=== PATIENT | male | born 1975 | race Asian ===

== ENCOUNTER 2021-08-26 10:02 | Inpatient (IN) | payer OTHER ==
[~2021-08-26] VITALS: Ht 167.6 cm; Wt 67.0 kg
[2021-08-26 10:59] LABS: BASOPHILS % (AUTO) 0.2 % (0.0-2.0); EOSINOPHILS % (AUTO) 5.4 % (1.0-6.0); HEMATOCRIT 46.8 % (41-53); HEMOGLOBIN 15.9 g/dL (13.5-17.5); LYMPHOCYTES # (AUTO) 2.1 K/uL (1.0-4.8); LYMPHOCYTES % (AUTO) 25.6 % (22.0-44.0); MEAN CORPUSCULAR HEMOGLOBIN 30.6 pg (26.0-34.0); MEAN CORPUSCULAR HGB CONC 33.9 G/dL (31.0-37.0); MEAN CORPUSCULAR VOLUME 90 fL (80-100); MONOCYTES # (AUTO) 0.7 K/uL (0.1-1.0); MONOCYTES % (AUTO) 8.5 % (2.0-9.0); NEUTROPHILS # (AUTO) 4.9 K/uL (1.8-7.7); NEUTROPHILS % (AUTO) 60.3 % (40.0-70.0); PLATELET COUNT (AUTO) 259 K/uL (150-450); RED BLOOD CELL COUNT(AUTO) 5.18 MIL/uL (4.50-5.90); RED CELL DISTRIBUTION WIDTH 13.5 % (11.5-14.5)
[2021-08-26 11:18] LABS: ANION GAP 5 mmol/L (8-16); CALCIUM, TOTAL 9.3 mg/dL (8.8-10.5); CARBON DIOXIDE 31 mmol/L (22-29); CHLORIDE 105 mmol/L (98-107); CREATININE 0.86 mg/dL (0.60-1.30); GLOMERULAR FILTR. RATE CALC > 60 mL/min (>60); GLUCOSE,RANDOM 92 mg/dL (70-110); POTASSIUM 4.7 mmol/L (3.5-5.1); SODIUM SERUM 141 mmol/L (136-145); UREA NITROGEN, BLOOD 20 mg/dL (7-18)
[2021-08-26 11:24] LABS: ALKALINE PHOSPHATASE 60 U/L (46-116); ASPARTATE AMINOTRANSFERASE 15 U/L (15-37); BILIRUBIN,TOTAL 0.2 mg/dL (0.1-1.0); TOTAL PROTEIN, SERUM 7.6 g/dL (6.4-8.2)
[2021-08-26 11:33] LABS: ALANINE AMINOTRANSFERASE 24 U/L (12-78)
[2021-08-26] MEDS ORDERED: NITROGLYCERIN 2% (1 GM=INCH) PACKET TP ONE (13:45)
[2021-08-26] MEDS ORDERED: ASPIRIN 325 MG TABLET PO ONE (13:45)
[2021-08-26] MEDS ORDERED: NITROGLYCERIN 0.4 MG SUBLINGUAL TABLET #25 SL PRN (15:00)
[2021-08-26 16:12] LABS: COVID AG,FIA SOURCE NASOPHARYNGEAL
[2021-08-26] MEDS ORDERED: SODIUM CHLORIDE 0.9% 100 ML ONE (17:37)
[2021-08-26] MEDS ORDERED: IOHEXOL 350 MG/ML 100 ML VIAL ONE (17:37)
[2021-08-26] MEDS ORDERED: ZOLPIDEM TARTRATE 5 MG TABLET PO PRN (20:30)
[2021-08-26] MEDS ORDERED: ONDANSETRON HCL 4 MG/2 ML VIAL IVP PRN (20:30)
[2021-08-26] MEDS ORDERED: ACETAMINOPHEN 325 MG TABLET PO PRN (20:30)
[2021-08-26] MEDS ORDERED: ALBUTEROL SULFATE 2.5 MG/0.5 ML NEB SOLUTION NEB PRN (20:30)
[2021-08-26] MEDS ORDERED: MAGNESIUM HYDROXIDE SUSPENSION 30 ML UDCUP PO PRN (20:30)
[2021-08-26] MEDS ORDERED: HYDROCODONE/ACETAMINOPHEN 5-325 MG TABLET PO PRN (20:30)
[2021-08-26] MEDS ORDERED: BISACODYL 10 MG RECTAL RECTAL SUPPOSITORY PR PRN (20:30)
[2021-08-26] MEDS ORDERED: IPRATROPIUM BROMIDE 0.5 MG/2.5 ML NEB SOLUTION NEB PRN (20:30)
[2021-08-26] MEDS ORDERED: MORPHINE SULFATE 2 MG/ML SYRINGE IVP PRN (20:30)
[2021-08-26] MEDS: HEPARIN SODIUM,PORCINE 5,000 UNITS/ML VIAL SQ SCH (23:59)
[2021-08-27 06:59] LABS: BASOPHILS % (AUTO) 1.2 % (0.0-2.0); EOSINOPHILS % (AUTO) 6.4 % (1.0-6.0); HEMATOCRIT 46.2 % (41-53); HEMOGLOBIN 15.7 g/dL (13.5-17.5); LYMPHOCYTES # (AUTO) 2.4 K/uL (1.0-4.8); LYMPHOCYTES % (AUTO) 30.1 % (22.0-44.0); MEAN CORPUSCULAR HEMOGLOBIN 30.7 pg (26.0-34.0); MEAN CORPUSCULAR VOLUME 90 fL (80-100); MONOCYTES # (AUTO) 0.7 K/uL (0.1-1.0); MONOCYTES % (AUTO) 8.7 % (2.0-9.0); NEUTROPHILS # (AUTO) 4.2 K/uL (1.8-7.7); NEUTROPHILS % (AUTO) 53.6 % (40.0-70.0); PLATELET COUNT (AUTO) 249 K/uL (150-450); RED BLOOD CELL COUNT(AUTO) 5.12 MIL/uL (4.50-5.90); RED CELL DISTRIBUTION WIDTH 13.3 % (11.5-14.5)
[2021-08-27 07:24] LABS: B-TYPE NATRIURETIC PEPTIDE 11 pg/mL (0-100); HEMOGLOBIN A1C 5.8 % (3.8-5.6)
[2021-08-27 07:35] LABS: ANION GAP 7 mmol/L (8-16); CALCIUM, TOTAL 8.8 mg/dL (8.8-10.5); CARBON DIOXIDE 28 mmol/L (22-29); CHLORIDE 107 mmol/L (98-107); CHOL/HDL RATIO 5.4 (4.2-7.3); CHOLESTEROL 214 mg/dL (131-200); CREATININE 0.97 mg/dL (0.60-1.30); GLOMERULAR FILTR. RATE CALC > 60 mL/min (>60); GLUCOSE,RANDOM 96 mg/dL (70-110); HDL CHOLESTEROL 40 mg/dL (40-60); LDL CHOL (CALC.) 146 mg/dL (0-130); POTASSIUM 4.3 mmol/L (3.5-5.1); SODIUM SERUM 142 mmol/L (136-145); TRIGLYCERIDES 139 mg/dL (15-150); UREA NITROGEN, BLOOD 24 mg/dL (7-18)
[2021-08-27] MEDS: PANTOPRAZOLE SODIUM 40 MG/VIAL IVP SCH (09:20)
[2021-08-27] MEDS: HEPARIN SODIUM,PORCINE 5,000 UNITS/ML VIAL SQ SCH ×3 (09:20→23:54)
[2021-08-27] MEDS: ASPIRIN 81 MG DR TABLET PO SCH (09:20)
[2021-08-27] MEDS ORDERED: SESTAMIBI TC99M/UD ISOTOPE 1 EA INJ INJ ONE (10:05)
[2021-08-27 22:40] VITALS: BP 147/88
[2021-08-28 05:13] VITALS: BP 147/95
[2021-08-28 07:35] VITALS: BP 144/94
[2021-08-28] MEDS: HEPARIN SODIUM,PORCINE 5,000 UNITS/ML VIAL SQ SCH ×2 (08:00→15:44)
[2021-08-28] MEDS: PANTOPRAZOLE SODIUM 40 MG/VIAL IVP SCH (08:05)
[2021-08-28] MEDS ORDERED: REGADENOSON 0.4 MG/5 ML PF SYRINGE IVP ONE ×2 (08:30→23:19)
[2021-08-28] MEDS ORDERED: ATORVASTATIN CALCIUM 20 MG TABLET PO SCH (09:00)
[2021-08-28] MEDS ORDERED: SESTAMIBI TC99M/UD ISOTOPE 1 EA INJ INJ ONE (10:20)
[2021-08-28 10:57] VITALS: BP 144/88
[2021-08-28 11:39] VITALS: BP 142/88
[2021-08-28] MEDS: ASPIRIN 81 MG DR TABLET PO SCH (12:57)
[2021-08-28 16:08] VITALS: BP 119/82
[2021-08-28 19:35] VITALS: BP 126/73
[2021-08-28] MEDS ORDERED: ATOR20TA65 PO (23:56)
[2021-08-28] MEDS ORDERED: ASPI-1444 PO (23:56)
== END 2021-08-28 23:20 | disposition home or self-care (01) | DRG 203 ==
LOC: EMS 10:12 → 5S 08-27 19:00
PROVIDERS: ADMIT Hospitalist; ATTEND Hospitalist
DX: R07.89 Other chest pain (principal); E78.5 Hyperlipidemia, unspecified; Z20.822 Contact with and (suspected) exposure to COVID-19; R13.10 Dysphagia, unspecified; Z72.0 Tobacco use; Z71.6 Tobacco abuse counseling
CPT/HCPCS: 70498; 71045; 71275; 78452; 80048; 80053; 80061; 83036; 83880; 84484; 85025; 93005; 93306; 99285; A9500; C9113; J1644; J2785; J7050; Q9967; 36415-L1; 36415-TC

== ENCOUNTER 2025-04-24 19:17 | Emergency (ER) | payer OTHER ==
[~2025-04-24] VITALS: Ht 165.1 cm; Wt 63.6 kg
[~2025-04-24 19:17] MED LIST: ASPI-1444 PO; ATOR20TA65 PO; CARV-165 PO; IBUP-1492 PO; ISOS30TA92 PO; LOSA-382 PO; NITR0.4T52 SL; OXYC10TA59 PO; TICA90TA PO
[2025-04-24 19:26] VITALS: BP 130/82; PULSE 90; RESP 16; TEMP 98.1; O2SAT 94
[2025-04-24 21:23] LABS: PLATELET COUNT (AUTO) 215 K/uL (150-450); RED BLOOD CELL COUNT(AUTO) 5.09 MIL/uL (4.50-5.90); RED CELL DISTRIBUTION WIDTH 13.8 % (11.5-14.5); WHITE BLOOD COUNT (AUTO) 11.5 K/uL (4.5-11.0)
[2025-04-24 21:32] LABS: CALCIUM, TOTAL 8.4 mg/dL (8.8-10.5); CREATININE 0.72 mg/dL (0.60-1.30); GLOMERULAR FILTR. RATE CALC > 60 mL/min (>60); GLUCOSE,RANDOM 107 mg/dL (70-110); SODIUM SERUM 137 mmol/L (136-145); UREA NITROGEN, BLOOD 18 mg/dL (7-18)
[2025-04-24] MEDS ORDERED: IBUP-1492 PO (23:18)
[2025-04-24] MEDS ORDERED: SULF-261 PO (23:18)
[2025-04-24] MEDS: HYDROCODONE/ACETAMINOPHEN 5-325 MG TABLET PO ONE (23:26)
[2025-04-24] MEDS: SULFAMETHOX/TRIMETH DS 800-160 MG/TABLET PO ONE (23:26)
== END 2025-04-24 23:33 | disposition home or self-care (01) ==
LOC: EMS 19:17
DX: L03.116 Cellulitis of left lower limb (principal); T25.222A Burn of second degree of left foot, initial encounter; E78.00 Pure hypercholesterolemia, unspecified; I11.9 Hypertensive heart disease without heart failure; Z79.82 Long term (current) use of aspirin; Z79.891 Long term (current) use of opiate analgesic; Z79.899 Other long term (current) drug therapy; Z98.890 Other specified postprocedural states; Y92.89 Other specified places as the place of occurrence of the external cause
CPT/HCPCS: 80048; 82962; 85025; 99283